=== PATIENT | male | born 1975 | race Caucasian/White ===

== ENCOUNTER 2018-03-24 07:25 | Emergency (ER) | payer OTHER ==
[~2018-03-24] VITALS: Ht 177.8 cm; Wt 95.0 kg
[2018-03-24 07:51] LABS: HEMATOCRIT 44.3 % (38.0-50.0); HEMOGLOBIN 16.1 G/DL (12.5-16.6); MCH 32.5 PG (29.0-34.0); MCHC 36.3 G/DL (30.0-36.0); MCV 89.3 FL (86-99); PLATELET COUNT 279 K/uL (156-360); RBC DIS.WIDTH-CV 11.9 % (11.8-14.6); RBC DIS.WIDTH-SD 38.5 % (39-53); RED BLOOD COUNT 4.96 M/uL (4.00-5.50); WHITE BLOOD COUNT 11.4 K/uL (4.1-10.2)
[2018-03-24 08:10] LABS: APPEARANCE SL.HAZY ((CLEAR)); BILIRUBIN NEGATIVE; BLOOD LARGE; COLOR YELLOW ((YELLOW)); GLUCOSE (STRIP) NEGATIVE; KETONES NEGATIVE; LEUKOCYTES NEGATIVE; NITRITE NEGATIVE; PROTEIN (STRIP) 30; SPECIFIC GRAVITY 1.029 (1.000-1.030)
[2018-03-24 08:33] LABS: ALBUMIN 4.4 g/dL (3.2-4.8); CHLORIDE 106 mEq/L (99-109); POTASSIUM 3.6 mEq/L (3.7-5.4); SODIUM 142 mEq/L (136-147)
[2018-03-24 08:35] LABS: GLUCOSE 170 mg/dL (70-99); TOTAL PROTEIN 7.4 g/dL (6.4-8.3)
[2018-03-24 08:36] LABS: EPITHELIAL CELLS RARE /HPF; RED BLOOD CELLS 30-40 /HPF (0-5); WHITE BLOOD CELLS 0-5 /HPF (0-5)
[2018-03-24 08:37] LABS: AMORPHOUS URATES CRYSTALS 2+; BACTERIA RARE /HPF; MUCUS 3+ /LPF; UCUL ADDED? NO
[2018-03-24 08:37] LABS: TOTAL BILIRUBIN 0.8 mg/dL (0.0-1.0)
[2018-03-24 08:39] LABS: ALKALINE PHOSPHATASE 92 IU/L (3-129); CREATININE 1.3 mg/dL (0.6-1.3); GFR ESTIMATE (CALCULATED) > 59 mL/min/ (58.99-99999)
[2018-03-24 08:40] LABS: UREA NITROGEN (BUN) 20 mg/dL (9-23)
[2018-03-24 08:41] LABS: AST (GOT) 20 IU/L (2-34)
[2018-03-24 08:42] LABS: ALT (GPT) 44 IU/L (3-49)
[2018-03-24] MEDS ORDERED: ZOFRAN ODT4 MG PO (09:20)
[2018-03-24] MEDS ORDERED: PERCOCET 5/31 TABLET PO (09:20)
[2018-03-24] MEDS ORDERED: MOTRIN800 MG PO (09:20)
[2018-03-24] MEDS ORDERED: FLOMAX0.4 MG PO (09:20)
[2018-03-24 11:10] VITALS: BP 136/81
== END 2018-03-24 11:20 | disposition home or self-care (01) ==
LOC: EME 07:25
PROVIDERS: Nurse Practitioner Family
DX: N13.2 Hydronephrosis with renal and ureteral calculous obstruction (principal)
CPT/HCPCS: 74176; 80053; 81003; 85027; 99281; 99285; J1885; J2405; J3010; J7030

== ENCOUNTER → 2018-06-12 | Outpatient (CLI) | payer OTHER ==
[~2018-06-12] MED LIST: FLOMAX0.4 MG PO; MOTRIN800 MG PO; PERCOCET 5/31 TABLET PO; ZOFRAN ODT4 MG PO
== END | disposition home or self-care (01) ==
LOC: OPR 08:29 → EDSTATUS 09:00 → OPR 09:00
DX: C64.1 Malignant neoplasm of right kidney, except renal pelvis (principal); Z87.442 Personal history of urinary calculi; Z80.42 Family history of malignant neoplasm of prostate
CPT/HCPCS: 77012; 88305; 88341 TC; 88342 TC; J3010